=== PATIENT | female | born 1930 | race Asian ===

== ENCOUNTER 2017-10-14 23:55 | Inpatient (IN) | payer MEDICARE, MEDICAID ==
[~2017-10-14] VITALS: Ht 149.9 cm; Wt 68.8 kg
[~2017-10-14 23:55] MED LIST: ALLO100T; GLIP2.5T28; LISI-285; LOVA20TA4; METO25TA62
[2017-10-15 02:56] LABS: Basophils # (auto) 0 uL; Eosinophils # (auto) 0 uL; Hematocrit 37.2 % (36.0-46.0); Hemoglobin 12.6 g/dL (12.2-16.2); Neutrophils # (auto) 2.3 uL; Nucleated Red Blood Cells % 0.1 %
[2017-10-15 02:58] LABS: Basophils % (auto) 0.5 % (0.0-2.0); Eosinophils % (auto) 0.9 % (0.0-7.0); Lymphocytes % (auto) 26.8 % (10.0-50.0); Mean Corpuscular Hemoglobin 33.4 pg (28.0-32.0); Mean Corpuscular Hgb Conc. 33.8 g/dL (32.0-36.0); Mean Corpuscular Volume 98.8 fL (80.0-100.0); Monocytes # (auto) 0.4 uL; Monocytes % (auto) 11.6 % (0.0-12.0); Neutrophils % (auto) 60.2 % (37.0-80.0); Platelet Count (auto) 50 10^3/uL (140-450); Red Blood Cells 3.76 10^6/uL (4.0-5.20); White Blood Cell 3.8 10^3/uL (4.4-10.8)
[2017-10-15 03:29] LABS: INR 0.92 (0.9-1.15); Partial Thromboplastin Time 26.9 sec (22.64-33.71)
[2017-10-15 03:38] LABS: Alanine Aminotransferase 22 U/L (13-56); Albumin 3.3 g/dL (3.4-5.0); Anion Gap 3 (5-15); Aspartate Aminotransferase 32 U/L (15-37); BUN/Creatinine Ratio 24.4; Blood Alcohol < 3.0 mg/dL (0-5); Blood Urea Nitrogen 22 mg/dL (7-18); Calcium 8.3 mg/dL (8.5-10.1); Carbon Dioxide 30 mmol/L (21-32); Chloride 104 mmol/L (98-107); GFR African American 76 mL/min; GFR Non-African American 63 mL/min; Glucose 119 mg/dL (74-106); Potassium 3.9 mmol/L (3.5-5.1); Sodium 137 mmol/L (136-145)
[2017-10-15 03:43] LABS: Alkaline Phosphatase 68 U/L (45-117); Bilirubin, Total 0.4 mg/dL (0.2-1.0); Total Protein 7.2 g/dL (6.4-8.2)
[2017-10-15] MEDS ORDERED: OLANZapine 5 MG TAB PO ONE (07:45)
[2017-10-15 08:55] LABS: Urine Bacteria NONE SEEN /hpf (None Seen); Urine Blood TRACE /uL (Negative); Urine Mucus FEW (None Seen); Urine Specific Gravity 1.019 (1.001-1.035); Urine WBC 95 /hpf (0 - 5)
[2017-10-15] MEDS ORDERED: cefTRIAXone 1GM/10ml IVPUSH 10 ML IV ONE (09:15)
[2017-10-15] MEDS ORDERED: SODIUM CHLORIDE 0.9% 500 ML IV ONE (09:15)
[2017-10-15] MEDS: SODIUM CHLORIDE 0.9% 1,000 ML IV SCH ×2 (11:17→20:15)
[2017-10-15] MEDS ORDERED: GADOPENTETATE DIMEGLUMINE (10MMOL/20 ML) VIAL IV ONE (12:02)
[2017-10-15] MEDS ORDERED: LORazepam 2MG/ML-1ML VIAL ONE (14:09)
[2017-10-15] MEDS ORDERED: MORPHINE SULFATE 4 MG/ML SYR/VIAL IV PRN ×2 (14:15)
[2017-10-15] MEDS ORDERED: PROMETHAZINE HCL 25 MG/ML 1ML IV PRN (14:15)
[2017-10-15] MEDS ORDERED: LACTULOSE 20Gm/30ML SOLN PO PRN (14:15)
[2017-10-15] MEDS ORDERED: LORazepam 2MG/ML-1ML VIAL IV ONE (14:15)
[2017-10-15] MEDS ORDERED: LORazepam 0.5 MG TAB PO PRN (14:15)
[2017-10-15] MEDS ORDERED: HYDROcodone-ACET 5/325MG TAB PO PRN (14:15)
[2017-10-15] MEDS ORDERED: ACETAMINOPHEN 500 MG TAB PO PRN (14:15)
[2017-10-15] MEDS ORDERED: NITROGLYCERIN 0.4 MG SL TAB SL PRN (14:15)
[2017-10-15] MEDS ORDERED: DEXTROSE (50%) 50ML SYRG IV PRN (14:15)
[2017-10-15] MEDS: InsuLIN REG 1unit/0.01ml Soln (100units/ml) SC SCH ×2 (17:00→21:57)
[2017-10-15] MEDS: ACCU-CHEK COMFORT CURVE STRIP VI SCH ×2 (17:17→21:54)
[2017-10-15 18:50] VITALS: BP 159/67
[2017-10-15 20:00] LABS: Folate (Folic Acid) > 24.00 ng/mL (5.38-24)
[2017-10-15 22:00] VITALS: BP 145/74
[2017-10-16] VITALS (7 sets, daily range): BP systolic 140–155; BP diastolic 65–74
[2017-10-16] MEDS: SODIUM CHLORIDE 0.9% 1,000 ML IV SCH ×2 (06:15→16:53)
[2017-10-16] MEDS: InsuLIN REG 1unit/0.01ml Soln (100units/ml) SC SCH ×4 (06:43→22:34)
[2017-10-16] MEDS: ACCU-CHEK COMFORT CURVE STRIP VI SCH ×3 (06:43→22:00)
[2017-10-16] MEDS ORDERED: cefTRIAXone 1GM/10ml IVPUSH 10 ML IV SCH (09:00)
[2017-10-16] MEDS ORDERED: VANCOMYCIN PER PHARMACY 0 MG IV SCH (11:15)
[2017-10-16] MEDS ORDERED: HALOPERIDOL LACTATE 5 MG/ML INJ VIAL IV PRN (11:15)
[2017-10-16] MEDS ORDERED: PIPERACILLIN-TAZOB 2.25GM 50 ML IV SCH (12:00)
[2017-10-16 13:15] LABS: Albumin 2.8 g/dL (3.4-5.0); BUN/Creatinine Ratio 21.1; Bilirubin, Total 0.5 mg/dL (0.2-1.0); Calcium 8.2 mg/dL (8.5-10.1); Potassium 3.3 mmol/L (3.5-5.1); Total Protein 6.5 g/dL (6.4-8.2)
[2017-10-16] MEDS: VANCOMYCIN 750 MG in D5W 5% 250 ML IV SCH (14:00)
[2017-10-16] MEDS: PIPERACILLIN-TAZOB 2.25GM 50 ML IV SCH ×2 (15:20→20:59)
[2017-10-16] MEDS ORDERED: LACTULOSE 20Gm/30ML SOLN PO ONE (15:45)
[2017-10-16] MEDS ORDERED: POTASSIUM CHL 20 Meq TABLET PO ONE (15:45)
[2017-10-17] VITALS (7 sets, daily range): BP systolic 121–167; BP diastolic 54–86
[2017-10-17] MEDS: SODIUM CHLORIDE 0.9% 1,000 ML IV SCH ×3 (03:09→21:22)
[2017-10-17] MEDS: PIPERACILLIN-TAZOB 2.25GM 50 ML IV SCH ×4 (03:09→21:21)
[2017-10-17] MEDS: ACCU-CHEK COMFORT CURVE STRIP VI SCH ×4 (06:54→21:21)
[2017-10-17] MEDS: InsuLIN REG 1unit/0.01ml Soln (100units/ml) SC SCH ×4 (06:54→21:21)
[2017-10-17 07:08] LABS: Basophils # (auto) 0 uL; Basophils % (auto) 0.7 % (0.0-2.0); Eosinophils # (auto) 0.1 uL; Eosinophils % (auto) 3.2 % (0.0-7.0); Hematocrit 33.5 % (36.0-46.0); Hemoglobin 11.4 g/dL (12.2-16.2); Lymphocytes % (auto) 23.1 % (10.0-50.0); Mean Corpuscular Hemoglobin 33.5 pg (28.0-32.0); Mean Corpuscular Volume 98.6 fL (80.0-100.0); Monocytes # (auto) 0.5 uL; Monocytes % (auto) 10.6 % (0.0-12.0); Neutrophils # (auto) 2.7 uL; Neutrophils % (auto) 62.4 % (37.0-80.0); Platelet Count (auto) 83 10^3/uL (140-450); Red Cell Distribution Width 12.9 % (11.8-14.3); White Blood Cell 4.3 10^3/uL (4.4-10.8)
[2017-10-17 07:57] LABS: Albumin 2.6 g/dL (3.4-5.0); BUN/Creatinine Ratio 11.9; Bilirubin, Total 0.6 mg/dL (0.2-1.0); Potassium 3.4 mmol/L (3.5-5.1); Total Protein 6.3 g/dL (6.4-8.2)
[2017-10-17] MEDS ORDERED: LACTULOSE 20Gm/30ML SOLN PO PRN (10:00)
[2017-10-17] MEDS ORDERED: POTASSIUM CHL 20 Meq TABLET PO SCH (10:00)
[2017-10-17] MEDS: VANCOMYCIN 750 MG in D5W 5% 250 ML IV SCH (14:04)
[2017-10-17] MEDS ORDERED: LORazepam 2MG/ML-1ML VIAL IV PRN (18:00)
[2017-10-18] MEDS ORDERED: GADOPENTETATE DIMEGLUMINE (10MMOL/20 ML) VIAL IV ONE (00:08)
[2017-10-18] MEDS: PIPERACILLIN-TAZOB 2.25GM 50 ML IV SCH ×2 (03:31→10:54)
[2017-10-18 05:00] VITALS: BP 154/77
[2017-10-18] MEDS: InsuLIN REG 1unit/0.01ml Soln (100units/ml) SC SCH ×4 (06:39→21:58)
[2017-10-18] MEDS: ACCU-CHEK COMFORT CURVE STRIP VI SCH ×4 (06:39→21:58)
[2017-10-18 07:33] LABS: Basophils # (auto) 0 uL; Basophils % (auto) 0.6 % (0.0-2.0); Eosinophils # (auto) 0.1 uL; Eosinophils % (auto) 2.6 % (0.0-7.0); Hematocrit 35.9 % (36.0-46.0); Lymphocytes % (auto) 23.3 % (10.0-50.0); Mean Corpuscular Hemoglobin 33.3 pg (28.0-32.0); Mean Corpuscular Hgb Conc. 33.4 g/dL (32.0-36.0); Mean Corpuscular Volume 99.8 fL (80.0-100.0); Monocytes # (auto) 0.5 uL; Monocytes % (auto) 11.8 % (0.0-12.0); Neutrophils # (auto) 2.8 uL; Neutrophils % (auto) 61.7 % (37.0-80.0); Platelet Count (auto) 114 10^3/uL (140-450); Red Blood Cells 3.59 10^6/uL (4.0-5.20); Red Cell Distribution Width 13.3 % (11.8-14.3); White Blood Cell 4.5 10^3/uL (4.4-10.8)
[2017-10-18 07:54] LABS: Albumin 2.9 g/dL (3.4-5.0); BUN/Creatinine Ratio 7.9; Bilirubin, Total 0.8 mg/dL (0.2-1.0); Calcium 8.4 mg/dL (8.5-10.1); Potassium 3.9 mmol/L (3.5-5.1); Total Protein 6.8 g/dL (6.4-8.2)
[2017-10-18 08:00] VITALS: BP 151/93
[2017-10-18] MEDS: SODIUM CHLORIDE 0.9% 1,000 ML IV SCH (08:21)
[2017-10-18] MEDS ORDERED: OMEP20CA74 PO (08:54)
[2017-10-18] MEDS ORDERED: LOVA20TA4 PO (08:54)
[2017-10-18] MEDS ORDERED: HYDR-3682 PO (08:54)
[2017-10-18] MEDS ORDERED: [UNRECOGNIZED DRUG - CODE] PO ×2 (08:54)
[2017-10-18] MEDS ORDERED: CHOL20007 PO (08:54)
[2017-10-18] MEDS ORDERED: METF-370 PO (08:54)
[2017-10-18] MEDS ORDERED: CYA100I PO (08:54)
[2017-10-18] MEDS ORDERED: ALLO100T PO (08:54)
[2017-10-18] MEDS ORDERED: LOSA50TA6 PO (08:54)
[2017-10-18] MEDS ORDERED: METO25TA62 PO (08:54)
[2017-10-18] MEDS ORDERED: BISA-13 PO (08:54)
[2017-10-18] MEDS: POTASSIUM CHL 10% (20 MEQ/15ML) 15ml ORAL SOLN PO SCH (11:38)
[2017-10-18 12:00] VITALS: BP 155/72
[2017-10-18] MEDS: VANCOMYCIN 750 MG in D5W 5% 250 ML IV SCH (14:34)
[2017-10-18 16:00] VITALS: BP 149/72
[2017-10-18] MEDS: cefTRIAXone 1GM/10ml IVPUSH 10 ML IV SCH (16:53)
[2017-10-18] MEDS: DONEPEZIL HYDROCHLORIDE 5 MG TAB PO SCH (21:47)
[2017-10-18 22:00] VITALS: BP 139/56
[2017-10-19 05:54] VITALS: BP 153/81
[2017-10-19 05:58] LABS: Albumin 2.8 g/dL (3.4-5.0); BUN/Creatinine Ratio 10.1; Bilirubin, Total 0.8 mg/dL (0.2-1.0); Calcium 8.5 mg/dL (8.5-10.1); Potassium 3.6 mmol/L (3.5-5.1); Total Protein 6.8 g/dL (6.4-8.2)
[2017-10-19] MEDS: ACCU-CHEK COMFORT CURVE STRIP VI SCH ×4 (06:22→21:41)
[2017-10-19] MEDS: InsuLIN REG 1unit/0.01ml Soln (100units/ml) SC SCH ×4 (06:22→21:42)
[2017-10-19 08:00] VITALS: BP 165/76
[2017-10-19] MEDS: cefTRIAXone 1GM/10ml IVPUSH 10 ML IV SCH (10:15)
[2017-10-19] MEDS: POTASSIUM CHL 10% (20 MEQ/15ML) 15ml ORAL SOLN PO SCH (10:16)
[2017-10-19] MEDS ORDERED: LOSARTAN POTASSIUM 50 MG TAB PO ONE (11:15)
[2017-10-19] MEDS ORDERED: METOPROLOL SUCCINATE XL 50 MG TAB PO ONE (11:15)
[2017-10-19 12:00] VITALS: BP 167/79
[2017-10-19 16:00] VITALS: BP 158/75
[2017-10-19] MEDS: DONEPEZIL HYDROCHLORIDE 5 MG TAB PO SCH (21:39)
[2017-10-20] MEDS: InsuLIN REG 1unit/0.01ml Soln (100units/ml) SC SCH ×2 (06:19→11:30)
[2017-10-20] MEDS: ACCU-CHEK COMFORT CURVE STRIP VI SCH ×2 (06:19→11:52)
[2017-10-20] MEDS: cefTRIAXone 1GM/10ml IVPUSH 10 ML IV SCH (09:08)
[2017-10-20] MEDS: POTASSIUM CHL 10% (20 MEQ/15ML) 15ml ORAL SOLN PO SCH (09:11)
[2017-10-20] MEDS ORDERED: CEPH-37 PO (09:32)
[2017-10-20] MEDS ORDERED: LOSARTAN POTASSIUM 50 MG TAB PO SCH (10:00)
[2017-10-20] MEDS ORDERED: METOPROLOL SUCCINATE XL 50 MG TAB PO SCH (10:00)
[2017-10-20 12:18] VITALS: BP 155/73
== END 2017-10-20 13:20 | disposition home or self-care (01) | DRG 871 ==
LOC: EDBD 23:55 → ER 10-15 → TELE 10-15 00:01 → TELE-WESTW 10-15 18:02 → WEST WING 10-18 15:08
PROVIDERS: ADMIT Internal Medicine; ATTEND Internal Medicine
DX: A41.9 Sepsis, unspecified organism (principal); G93.41 Metabolic encephalopathy; E44.0 Moderate protein-calorie malnutrition; D69.6 Thrombocytopenia, unspecified; N39.0 Urinary tract infection, site not specified; E11.9 Type 2 diabetes mellitus without complications; K59.00 Constipation, unspecified; N81.2 Incomplete uterovaginal prolapse; N95.2 Postmenopausal atrophic vaginitis; F41.9 Anxiety disorder, unspecified; F03.90 Unspecified dementia, unspecified severity, without behavioral disturbance, psychotic disturbance, mood disturbance, and anxiety; M10.9 Gout, unspecified; E78.5 Hyperlipidemia, unspecified; I11.0 Hypertensive heart disease with heart failure; H91.90 Unspecified hearing loss, unspecified ear; M19.90 Unspecified osteoarthritis, unspecified site; Z83.3 Family history of diabetes mellitus; Z79.899 Other long term (current) drug therapy; Z68.30 Body mass index [BMI] 30.0-30.9, adult; Z71.3 Dietary counseling and surveillance
CPT/HCPCS: 36415; 70450; 71045; 80053; 80320; 81001; 82607; 82746; 82962; 83036; 84443; 84484; 85025; 85610; 85652; 85730; 87040; 87086; 93005; 95819; 96361; 96374; 97116; 97163; 97530; J1815; J2543; J7060

== ENCOUNTER → 2018-07-14 | Outpatient (CLI) | payer MEDICARE, MEDICAID ==
[~2018-07-14] MED LIST changes: -ALLO100T; +ALLO100T PO; +BISA-13 PO; +CEPH-37 PO; +CHOL20007 PO; +CYA100I PO; -GLIP2.5T28; +HYDR-3682 PO; -LISI-285; +LOSA-46 PO; -LOVA20TA4; +LOVA20TA4 PO; +METF-370 PO; -METO25TA62; +METO25TA62 PO; +OMEP20CA74 PO; +[UNRECOGNIZED DRUG - CODE] PO
== END | disposition home or self-care (01) ==
LOC: LAB 07:40
PROVIDERS: ATTEND Internal Medicine
DX: E11.9 Type 2 diabetes mellitus without complications (principal)
CPT/HCPCS: 36415; 83036